=== PATIENT | female | born 1945 | race Caucasian/White ===

== ENCOUNTER → 2018-07-12 03:57 | Emergency (ER) | payer MEDICARE ==
--- NOTE | 2018-07-12 04:27 | ED ---
HPI Cardiac - HPI Summary HPI Summary: This patient is a 73 year old F brought in by ambulance to [facility] with a chief complaint of palpitations since waking up this morning. She woke up after a bad dream and had mostly regular, strong heartbeats. She now reports feeling calmer. Patient reports left handed numbness. Patient has had a PMHx of panic attacks, but she says she has not had any for 2 years. Panic attacks also gradually build up and include anxiety for the patient, but she denie these symptoms. Patient did not eat dinner before going to bed and lives alone. Patient refused any medication. She only wanted hot water. - History of Current Complaint Chief Complaint: EDDysrhythmPalp Stated Complaint: HEART PALPITATIONS PER EMS Time Seen by Provider: 07/12/18 04:05 Hx Obtained From: Patient Onset/Duration: Still Present Pain Intensity: 0 Character: Other: - Palpitations Associated Signs and Symptoms: Positive: Numbness - Left hand numbness - Allergy/Home Medications Allergies/Adverse Reactions: Allergies Allergy/AdvReac Type Severity Reaction Status Date / Time No Known Allergies Allergy Verified 12/28/11 17:10 Home Medications: Home Medications NK [No Home Medications Reported] 07/12/18 [History Confirmed 07/12/18] PMH/Surg Hx/FS Hx/Imm Hx Endocrine/Hematology History: Denies: Hx Anticoagulant Therapy, Hx Diabetes, Hx Thyroid Disease Cardiovascular History: Denies: Hx Hypertension, Hx Pacemaker/ICD Respiratory History: Reports: Other Respiratory Problems/Disorders - ex-smoker Denies: Hx Asthma, Hx Chronic Obstructive Pulmonary Disease (COPD) History: Denies: Hx Renal Disease Musculoskeletal History: Reports: Other Musculoskeletal History - frozen shoulders, pulled muscles Denies: Hx Rheumatoid Arthritis, Hx Osteoporosis - OSTEOPENIA Sensory History: Reports: Hx Contacts or Glasses Opthamlomology History: Reports: Hx Contacts or Glasses Neurological History: Reports: Hx Headaches Denies: Hx Dementia, Hx Seizures Psychiatric History: Reports: Hx Panic Disorder Denies: Hx Substance Abuse - Cancer History Hx Chemotherapy: No Hx Radiation Therapy: No - Surgical History Surgery Procedure, Year, and Place: Tooth extraction 2017, local anesthetic Infectious Disease History: No Infectious Disease History: Denies: Hx Hepatitis, Hx Human Immunodeficiency Virus (HIV), Traveled Outside the [place] in Last 30 Days - Family History Known Family History: Positive: Cardiac Disease - Social History Alcohol Use: None Substance Use Type: Reports: None Smoking Status (MU): Never Smoked Tobacco Review of Systems Positive: Palpitations Positive: Numbness - Left-hand All Other Systems Reviewed And Are Negative: Yes Physical Exam - Summary Physical Exam Summary: VITAL SIGNS: Reviewed. GENERAL: Patient is a well-developed and nourished FEMALE who is lying comfortable in the stretcher. Patient is not in any acute respiratory distress. HEAD AND FACE: No signs of trauma. No ecchymosis, hematomas or skull depressions. No sinus tenderness. EYES: PERRLA, EOMI x 2, No injected conjunctiva, no nystagmus. EARS: Hearing grossly intact. Ear canals and tympanic membranes are within normal limits. MOUTH: Oropharynx within normal limits. NECK: Supple, trachea is midline, no adenopathy, no JVD, no carotid bruit, no c- spine tenderness, neck with full ROM. CHEST: Symmetric, no tenderness at palpation LUNGS: Clear to auscultation bilaterally. No wheezing or crackles. CVS: Normal sinus rhythm on surveillance system monitor, but with occasional PVCs. Rate around 80-85 bpm. ABDOMEN: Soft, non-tender. No signs of distention. No rebound, no guarding, and no masses palpated. Bowel sounds are normal. EXTREMITIES: FROM in all major joints, no edema, no cyanosis or clubbing. NEURO: Alert and oriented x 3. No acute neurological deficits. Speech is normal and follows commands. SKIN: Dry and warm Triage Information Reviewed: Yes Vital Signs On Initial Exam: Initial Vitals Temp Pulse Resp BP Pulse Ox 98.5 F 89 18 128/72 100 07/12/18 04:03 07/12/18 04:03 07/12/18 04:03 07/12/18 04:03 07/12/18 04:03 Vital Signs Reviewed: Yes Diagnostics - Vital Signs Vital Signs Temp Pulse Resp BP Pulse Ox 07/12/18 04:03 98.5 F 89 18 128/72 100 - Laboratory Lab Statement: Any lab studies that have been ordered have been reviewed, and results considered in the medical decision making process. Disposition - Course Course Of Treatment: This patient is a 73 year old F brought in by ambulance to [facility] with a chief complaint of palpitations since waking up this morning. Pt has maintained sinus rhythm during her stay, steady at 70 bpm at this time. She will be d/c home with a dx of anxiety. - Diagnoses Provider Diagnoses: Anxiety Discharge - Sign-Out/Discharge Documenting (check all that apply): Patient Departure - D/C home Patient Received Moderate/Deep Sedation with Procedure: No - Discharge Plan Condition: Stable Disposition: HOME Patient Education Materials: Anxiety (ED) Referrals: Mimi Collins MD [Primary Care Provider] - 3 Days Additional Instructions: Follow up with your PCP within 3 days. PLEASE RETURN TO THE ED IMMEDIATELY FOR WORSENING OR CONCERNING SYMPTOMS. - Attestation Statements Document Initiated by Scribe: Yes Documenting Scribe: Kuldeep Watson Provider For Whom Scribe is Documenting (Include Credential): Otoniel Osman MD Scribe Attestation: Kuldeep Argueta, scribed for Otoniel Osman MD on 07/12/18 at 0512. Status of Scribe Document: Ready
[2018-07-12 05:18] VITALS: BP 98/66
== END | disposition home or self-care (01) ==
LOC: ED 03:57
DX: F41.9 Anxiety disorder, unspecified (principal); M81.0 Age-related osteoporosis without current pathological fracture
CPT/HCPCS: 99282

== ENCOUNTER 2020-09-22 12:03 | Observation (INO) ==
[2020-09-22] MEDS ORDERED: NS 0.9% 1000 ml BAG 1,000 ML IV ONE (12:44)
[2020-09-22 13:21] LABS: ABS Eosinophils 0.1 10^3/ul (0-0.6); ABS Lymphocytes 1.8 10^3/ul (1.0-4.8); ABS Monocytes 0.8 10^3/ul (0-0.8); ABS Neutrophils 5.9 10^3/ul (1.5-7.7); Hematocrit 35 % (35-47); Hemoglobin 12.1 g/dL (12.0-16.0); Lymphocyte % 20.4 %; Mean Corpuscular HGB Conc 35 g/dL (31-36); Mean Corpuscular Hemoglobin 30 pg (27-31); Mean Corpuscular Volume 86 fL (80-97); Mean Platelet Volume 8.4 fL (7.4-10.4); Platelet Count 208 10^3/uL (150-450); Red Blood Count 4.07 10^6 /uL (3.70-4.87); Red Cell Distribution Width 14 % (10-15); White Blood Count 8.6 10^3/uL (3.5-10.8)
[2020-09-22 13:53] LABS: ALT 13 U/L (7-52); AST 18 U/L (13-39); Albumin 3.8 g/dL (3.2-5.2); Albumin/Globulin Ratio 1.4 (1-3); Alkaline Phosphatase 70 U/L (35-149); Anion Gap 5 mmol/L (2-11); Blood Urea Nitrogen 16 mg/dL (6-24); CO2 Carbon Dioxide 24 mmol/L (22-32); Calcium 9.1 mg/dL (8.6-10.3); Chloride 109 mmol/L (101-111); EGFR African American 106.2 (>60); EGFR Non-African American 87.8 (>60); Globulin 2.7 g/dL (2-4); Glucose 112 mg/dL (70-100); Potassium 3.8 mmol/L (3.5-5.0); Sodium 138 mmol/L (135-145); Total Protein 6.5 g/dL (6.4-8.9)
[2020-09-22 13:55] LABS: Urine Appearance Clear; Urine Bilirubin Negative (Negative); Urine Blood Negative (Negative); Urine Color Straw; Urine Glucose Negative (Negative); Urine Ketones Negative (Negative); Urine Nitrite Negative (Negative); Urine Protein Negative (Negative); Urine Specific Gravity 1.003 (1.002-1.030); Urine Urobilinogen Negative (Negative)
[2020-09-22 14:00] LABS: Troponin I 0.14 ng/mL (<0.03)
[2020-09-22 14:20] LABS: TSH Ultra Thyroid Stim Horm 3.39 mcIU/mL (0.34-5.60)
[2020-09-22] MEDS ORDERED: Aspirin EC 325 mg TAB.EC PO ONE (15:01)
[2020-09-22] MEDS ORDERED: Senna TAB 8.6 mg TAB PO PRN (16:20)
[2020-09-22 22:02] LABS: Hepatitis C Antibody Negative (Negative)
[2020-09-23 06:01] LABS: ABS Basophils 0.1 10^3/ul (0-0.2); ABS Eosinophils 0.2 10^3/ul (0-0.6); ABS Monocytes 0.7 10^3/ul (0-0.8); ABS Neutrophils 3.9 10^3/ul (1.5-7.7); Eosinophil % 2.5 %; Hematocrit 37 % (35-47); Hemoglobin 12.4 g/dL (12.0-16.0); Lymphocyte % 38.1 %; Mean Corpuscular HGB Conc 33 g/dL (31-36); Mean Corpuscular Hemoglobin 29 pg (27-31); Mean Corpuscular Volume 88 fL (80-97); Mean Platelet Volume 8.3 fL (7.4-10.4); Platelet Count 217 10^3/uL (150-450); Red Blood Count 4.23 10^6 /uL (3.70-4.87); Red Cell Distribution Width 14 % (10-15); White Blood Count 7.8 10^3/uL (3.5-10.8)
[2020-09-23 06:18] LABS: Calcium 8.9 mg/dL (8.6-10.3); EGFR African American 102.6 (>60); EGFR Non-African American 84.8 (>60); HDL Cholesterol 58.3 mg/dL
[2020-09-23 11:54] VITALS: BP 103/64
== END 2020-09-23 14:37 | disposition home or self-care (01) ==
LOC: MEDTELE 12:03 → ED 12:03 → MEDTELE 18:42
PROVIDERS: ADMIT Hospitalist; ATTEND Student in an Organized Health Care Education/Training Program